=== PATIENT | male | born 1960 | race Caucasian/White ===

== ENCOUNTER 2017-04-11 14:20 | Outpatient (CLI) | payer BC ==
--- NOTE | 2017-04-11 16:09 | Ultrasound Report ---
LIMITED PELVIC ULTRASOUND: 04/11/2017 CLINICAL INDICATION: Palpable abnormality left groin. TECHNIQUE: Ultrasound of the left groin was performed at rest and with Valsalva. FINDINGS: There is a left inguinal hernia present, containing fat. The hernia neck measures approxim ately 1.3 cm. No bowel herniation is identified. IMPRESSION: LEFT INGUINAL HERNIA, CONTAINING FAT, WITHOUT EVIDENCE OF BOWEL HERNIATION. JOB #: [id number] EXT JOB #:
== END 2017-04-11 14:21 | disposition home or self-care (01) ==
LOC: DI 14:20
PROVIDERS: ATTEND Internal Medicine
DX: K40.90 Unilateral inguinal hernia, without obstruction or gangrene, not specified as recurrent (principal)
CPT/HCPCS: 76857